=== PATIENT | female | born 1975 | race Caucasian/White ===

== ENCOUNTER → 2024-02-17 12:58 | Outpatient (REF) | payer BC, SELFPAY | LOC: HWRAD 12:58 | DX: D17.22 Benign lipomatous neoplasm of skin and subcutaneous tissue of left arm (principal); M25.512 Pain in left shoulder | CPT/HCPCS: 73030; 76882 ==

== ENCOUNTER 2024-11-21 06:31 | Day surgery (SDC) | payer BC, SELFPAY | END 2024-11-21 14:36 | disposition home or self-care (01) | LOC: GI 06:31 | PROVIDERS: ATTENDING PHYSICIAN Internal Medicine | DX: Z12.11 Encounter for screening for malignant neoplasm of colon (principal); K63.5 Polyp of colon; K57.30 Diverticulosis of large intestine without perforation or abscess without bleeding; K56.2 Volvulus; D12.8 Benign neoplasm of rectum; K64.9 Unspecified hemorrhoids | CPT/HCPCS: 45385; 88305 ==